=== PATIENT | male | born 1955 | race Caucasian/White ===

== ENCOUNTER 2019-01-22 19:49 | Emergency (ER) | payer MEDICAID ==
[~2019-01-22] VITALS: Ht 170.2 cm; Wt 108.9 kg
[2019-01-22 20:14] VITALS: BP_SYST 130
[2019-01-22] MEDS ORDERED: HYDROcodone/ACETAMIN 5-325 MG TAB (NORCO/ VICODIN) PO ONE (21:00)
[2019-01-22 21:28] VITALS: BP_SYST 132
== END 2019-01-22 21:28 | disposition home or self-care (01) ==
LOC: SED 19:49
DX: M17.12 Unilateral primary osteoarthritis, left knee (principal)
CPT/HCPCS: 73564; 99283

== ENCOUNTER 2024-03-11 12:04 | Inpatient (IN) | payer OTHER, MEDICAID ==
[~2024-03-11] VITALS: Ht 170.2 cm; Wt 118.5 kg
[2024-03-11 13:10] VITALS: BP_SYST 143; PULSE 85; RESP 22; TEMP 98.3; O2SAT 96
[2024-03-11 14:16] LABS: BILIRUBIN,URINE 1+ (NEGATIVE); BLOOD, URINE 3+ (NEGATIVE); CLARITY/URINE CLEAR (CLEAR); COLOR,URINE YELLOW (YELLOW); GLUCOSE,URINE NEGATIVE (NEGATIVE); KETONES,URINE TRACE (NEGATIVE); LEUKOCYTE ESTERASE ,URINE 1+ (NEGATIVE); NITRITE, URINE NEGATIVE (NEGATIVE); PH,URINE 5.5 (5.0-8.0); PROTEIN URINE 2+ (NEGATIVE)
[2024-03-11 14:30] LABS: BASOPHILS % (AUTO) 0.3 % (0.0-2.0); EOSINOPHILS % (AUTO) 0.1 % (0.0-4.0); HEMOGLOBIN 15.5 g/dL (14.0-18.0); LYMPHOCYTES # (AUTO) 0.8 K/uL (1.0-5.5); LYMPHOCYTES % (AUTO) 5.5 % (20.5-51.5); MEAN CORPUSCULAR HEMOGLOBIN 30 pg (27-31); MEAN CORPUSCULAR HGB CONC 35 % (32-36); MEAN CORPUSCULAR VOLUME 86 fL (79.0-98.0); MONOCYTES # (AUTO) 1.1 K/uL (0.0-1.0); MONOCYTES % (AUTO) 7.8 % (1.7-9.3); NEUTROPHILS % (AUTO) 86.3 % (40.0-70.0); PLATELET COUNT (AUTO) 186 K/uL (130-430); RED BLOOD CELL COUNT(AUTO) 5.21 MIL/uL (4.2-6.2); RED CELL DISTRIBUTION WIDTH 14.6 % (9.0-15.0); WHITE BLOOD COUNT (AUTO) 13.9 K/uL (4.8-10.8)
[2024-03-11 14:39] LABS: BACTERIA,URINE MODERATE /HPF (None Seen)
[2024-03-11 14:43] LABS: CALCIUM 8.8 mg/dL (8.4-11.0); CREATININE 1.02 mg/dL (0.55-1.30); POTASSIUM 3.9 mmol/L (3.5-5.1)
[2024-03-11] MEDS: NACL 0.9% 1,000 ML IV ONE ×2 (18:09→20:16)
[2024-03-11] MEDS: cefTRIAXone 1 GM IVPB PREMIX 50 ML IV ONE (18:09)
[2024-03-11] MEDS: KETOROLAC TROMETHAMINE 30 MG VIAL IVP ONE (20:03)
[2024-03-11] MEDS ORDERED: KETOROLAC TROMETHAMINE 30 MG VIAL ONE (20:07)
[2024-03-11] MEDS ORDERED: ONDANSETRON HCL 4 MG/2 ML VIAL IVP PRN (20:15)
[2024-03-11] MEDS ORDERED: MORPHINE 2 MG/ML INJ. SYRINGE IVP PRN (20:15)
[2024-03-11] MEDS ORDERED: HYDROcodone/ACETAMIN 5-325 MG TAB (NORCO/ VICODIN) PO PRN (20:15)
[2024-03-11] MEDS ORDERED: IPRATROPIUM BROM 0.5 MG/2.5 ML VIAL.NEB (ATROVENT) INH PRN (20:15)
[2024-03-11] MEDS: NACL 0.9% 1,000 ML IV SCH (21:09)
[2024-03-11] MEDS: PIPERACILLIN/TAZO 3.375/DEX-IS 50 ML IV ONE (21:16)
[2024-03-11] MEDS ORDERED: FENO160 PO (21:36)
[2024-03-11] MEDS ORDERED: LOSA25TA18 PO (21:36)
[2024-03-11] MEDS ORDERED: METF-379 PO (21:36)
[2024-03-11] MEDS ORDERED: PRAV20TA59 PO (21:36)
[2024-03-11] MEDS ORDERED: HYDR12.55 PO (21:36)
[2024-03-11 22:22] VITALS: BP_SYST 137; PULSE 76; RESP 20; TEMP 97.7; O2SAT 92
[2024-03-11 22:23] VITALS: BP_SYST 137; PULSE 76; RESP 20; TEMP 97.7; O2SAT 92
[2024-03-11 23:31] VITALS: BP_SYST 137; PULSE 76; O2SAT 96
[2024-03-12] MEDS: PIPERACILLIN/TAZOBACTAM 3.375 GM/VIAL (ZOSYN) IV ONE (05:07)
[2024-03-12] MEDS: PIPERACILLIN/TAZO 3.375/DEX-IS 50 ML IV SCH ×2 (05:09→15:16)
[2024-03-12 06:42] LABS: BASOPHILS % (AUTO) 0.2 % (0.0-2.0); EOSINOPHILS % (AUTO) 0.6 % (0.0-4.0); HEMATOCRIT 41.2 % (36-54); HEMOGLOBIN 14.3 g/dL (14.0-18.0); LYMPHOCYTES # (AUTO) 0.6 K/uL (1.0-5.5); LYMPHOCYTES % (AUTO) 8.7 % (20.5-51.5); MEAN CORPUSCULAR HEMOGLOBIN 30 pg (27-31); MEAN CORPUSCULAR HGB CONC 35 % (32-36); MEAN CORPUSCULAR VOLUME 87 fL (79.0-98.0); MONOCYTES # (AUTO) 0.6 K/uL (0.0-1.0); MONOCYTES % (AUTO) 8.8 % (1.7-9.3); NEUTROPHILS # (AUTO) 5.9 K/uL (1.8-7.7); NEUTROPHILS % (AUTO) 81.7 % (40.0-70.0); PLATELET COUNT (AUTO) 156 K/uL (130-430); RED BLOOD CELL COUNT(AUTO) 4.75 MIL/uL (4.2-6.2); RED CELL DISTRIBUTION WIDTH 14.7 % (9.0-15.0); WHITE BLOOD COUNT (AUTO) 7.3 K/uL (4.8-10.8)
[2024-03-12 07:44] LABS: ALBUMIN 2.4 g/dL (3.4-4.8); CALCIUM 7.7 mg/dL (8.4-11.0); CREATININE 0.96 mg/dL (0.55-1.30); POTASSIUM 3.6 mmol/L (3.5-5.1); TOTAL BILIRUBIN 1.9 mg/dL (0.0-1.0); TOTAL PROTEIN, SERUM 6.5 g/dL (6.4-8.3)
[2024-03-12 08:05] VITALS: BP_SYST 117; PULSE 73; RESP 20; TEMP 99.1; O2SAT 94
[2024-03-12] MEDS ORDERED: GLUCOSE (DEXTROSE) ORAL GEL -Adults PO PRN (10:00)
[2024-03-12] MEDS ORDERED: DEXTROSE 50% JECT 50 ML DISP.SYRIN IVP PRN (10:00)
[2024-03-12 11:10] VITALS: BP_SYST 128; PULSE 74; RESP 17; TEMP 97.3; O2SAT 97
[2024-03-12] MEDS: LOSARTAN POTASSIUM 25 MG TABLET PO ONE (11:53)
[2024-03-12] MEDS: TAMSULOSIN HCL 0.4 MG CAP PO ONE (11:53)
[2024-03-12] MEDS: ATORVASTATIN 10 MG TABLET PO ONE (11:54)
[2024-03-12] MEDS: ACETAMINOPHEN 325 MG TABLET PO PRN (12:07)
[2024-03-12 16:30] VITALS: BP_SYST 128; PULSE 74; RESP 17; TEMP 97.3; O2SAT 97
[2024-03-12 20:00] VITALS: BP_SYST 110; PULSE 70; RESP 17; TEMP 97.6; O2SAT 97
[2024-03-13 01:07] VITALS: BP_SYST 129; PULSE 77; RESP 19; TEMP 98.5; O2SAT 98
[2024-03-13] MEDS: HYDROcodone/ACETAMIN 10-325 MG TAB PO PRN (09:10)
[2024-03-13] MEDS: LOSARTAN POTASSIUM 25 MG TABLET PO SCH (09:11)
[2024-03-13] MEDS: TAMSULOSIN HCL 0.4 MG CAP PO SCH (09:11)
[2024-03-13] MEDS: ATORVASTATIN 10 MG TABLET PO SCH (09:11)
[2024-03-13 10:57] LABS: BASOPHILS % (AUTO) 0.6 % (0.0-2.0); EOSINOPHILS % (AUTO) 0.7 % (0.0-4.0); HEMATOCRIT 41.5 % (36-54); HEMOGLOBIN 14.3 g/dL (14.0-18.0); LYMPHOCYTES # (AUTO) 0.7 K/uL (1.0-5.5); LYMPHOCYTES % (AUTO) 16.4 % (20.5-51.5); MEAN CORPUSCULAR HEMOGLOBIN 30 pg (27-31); MEAN CORPUSCULAR HGB CONC 35 % (32-36); MEAN CORPUSCULAR VOLUME 86 fL (79.0-98.0); MONOCYTES # (AUTO) 0.5 K/uL (0.0-1.0); MONOCYTES % (AUTO) 12.1 % (1.7-9.3); NEUTROPHILS % (AUTO) 70.2 % (40.0-70.0); PLATELET COUNT (AUTO) 176 K/uL (130-430); RED CELL DISTRIBUTION WIDTH 14.4 % (9.0-15.0); WHITE BLOOD COUNT (AUTO) 4.2 K/uL (4.8-10.8)
[2024-03-13 11:10] LABS: ALBUMIN 2.3 g/dL (3.4-4.8); CALCIUM 8.2 mg/dL (8.4-11.0); CREATININE 0.93 mg/dL (0.55-1.30); POTASSIUM 3.6 mmol/L (3.5-5.1); TOTAL BILIRUBIN 0.9 mg/dL (0.0-1.0); TOTAL PROTEIN, SERUM 6.3 g/dL (6.4-8.3)
[2024-03-13 12:26] VITALS: BP_SYST 120; PULSE 63; RESP 18; TEMP 97.7; O2SAT 94
[2024-03-13 16:53] VITALS: BP_SYST 134; PULSE 67; RESP 18; TEMP 98.8; O2SAT 98
[2024-03-13] MEDS: ACETAMINOPHEN 325 MG TABLET PO PRN (16:53)
[2024-03-13 20:00] VITALS: BP_SYST 127; PULSE 60; RESP 18; TEMP 98; O2SAT 98
[2024-03-14] VITALS (7 sets, daily range): BP systolic 117–146; PULSE 57–75; RESP 14–18; TEMP 96.8–98.8; O2SAT 98
[2024-03-14 11:28] LABS: BASOPHILS % (AUTO) 0.7 % (0.0-2.0); EOSINOPHILS # (AUTO) 0.1 K/uL (0.0-0.4); EOSINOPHILS % (AUTO) 2.1 % (0.0-4.0); HEMATOCRIT 39.8 % (36-54); HEMOGLOBIN 13.8 g/dL (14.0-18.0); MEAN CORPUSCULAR HEMOGLOBIN 30 pg (27-31); MEAN CORPUSCULAR HGB CONC 35 % (32-36); MEAN CORPUSCULAR VOLUME 85 fL (79.0-98.0); MONOCYTES # (AUTO) 0.8 K/uL (0.0-1.0); NEUTROPHILS % (AUTO) 60.2 % (40.0-70.0); PLATELET COUNT (AUTO) 192 K/uL (130-430); RED BLOOD CELL COUNT(AUTO) 4.68 MIL/uL (4.2-6.2); RED CELL DISTRIBUTION WIDTH 14.8 % (9.0-15.0); WHITE BLOOD COUNT (AUTO) 4.9 K/uL (4.8-10.8)
[2024-03-14] MEDS: INSULIN REGULAR, HUMAN 100 UNITS/ML, 3 ML VIAL (humuLIN R) SUBCUT PRN (12:10)
[2024-03-14 12:21] LABS: ALBUMIN 2.4 g/dL (3.4-4.8); CALCIUM 8.8 mg/dL (8.4-11.0); CREATININE 0.9 mg/dL (0.55-1.30); POTASSIUM 4.6 mmol/L (3.5-5.1); TOTAL BILIRUBIN 0.6 mg/dL (0.0-1.0); TOTAL PROTEIN, SERUM 6.3 g/dL (6.4-8.3)
[2024-03-14] MEDS ORDERED: TAMS0.4C96 PO (14:42)
[2024-03-14] MEDS ORDERED: LEVO750T64 PO (14:46)
== END 2024-03-14 18:28 | disposition home or self-care (01) | DRG 871 ==
LOC: SED 12:04 → SMU 20:10
PROVIDERS: ADMIT Family Medicine; ATTEND Family Medicine
DX: A41.9 Sepsis, unspecified organism (principal); E43 Unspecified severe protein-calorie malnutrition; N39.0 Urinary tract infection, site not specified; E87.1 Hypo-osmolality and hyponatremia; E87.20 Acidosis, unspecified; Z68.41 Body mass index [BMI] 40.0-44.9, adult; K40.90 Unilateral inguinal hernia, without obstruction or gangrene, not specified as recurrent; E11.9 Type 2 diabetes mellitus without complications; I10 Essential (primary) hypertension; Z79.899 Other long term (current) drug therapy; Q55.69 Other congenital malformation of penis; B96.1 Klebsiella pneumoniae [K. pneumoniae] as the cause of diseases classified elsewhere
CPT/HCPCS: 36415; 80048; 80053; 81000; 81001; 81015; 82948; 83037; 83605; 85025; 86592; 87040; 87086; 87186; 87491; 94070; 99291; J0696; J1885; J2543